=== PATIENT | male | born 1985 | race Two or more races ===

== ENCOUNTER 2021-12-23 16:42 | Emergency (ER) | payer MEDICAID ==
[~2021-12-23] VITALS: Ht 177.8 cm; Wt 77.0 kg
[2021-12-23] MEDS ORDERED: DICYCLOMINE 10 MG/5 ML ORAL SYR PO STA (16:52)
[2021-12-23] MEDS ORDERED: METOCLOPRAMIDE HCL 10MG/2ML VIAL IV STA (16:52)
[2021-12-23] MEDS ORDERED: VISCOUS LIDOCAINE 2% 15 ML UDC MM ONE (17:00)
[2021-12-23] MEDS ORDERED: MAGNESIUM/ALUMINUM HYDROXIDE/SIMETHICONE 30ML UDC PO ONE (17:00)
[2021-12-23] MEDS ORDERED: SODIUM CHLORIDE 0.9% 1,000 ML IV ONE (17:00)
[2021-12-23 17:37] LABS: CHLORIDE 108 mEq/L (98-107)
[2021-12-23 17:39] LABS: HEMOGLOBIN. 14.9 g/dL (14.0-18.0); MEAN CORPUSCULAR HEMOGLOBIN 26.9 pg (28.0-32.0); MEAN CORPUSCULAR VOLUME 79.3 fL (80.0-94.0); PLATELET 297 x1000/uL (130-400); RED BLOOD CELL COUNT 5.55 mill/uL (4.7-6.1); RED CELL DISTRIBUTION WIDTH 13.5 % (11.6-14.6)
[2021-12-23 18:01] LABS: PLATELET ESTIMATE NORMAL
[2021-12-23] MEDS ORDERED: PROPRANOLOL HCL 10MG TABLET PO ONE (18:45)
[2021-12-23] MEDS ORDERED: ALPRAZOLAM 0.25 MG TABLET PO ONE (18:45)
[2021-12-23 19:21] LABS: CLARITY URINE CLEAR (CLEAR); COLOR URINE DARK YELLOW (YELLOW); KETONES URINE TRACE (NEGATIVE); LEUKOCYTE ESTERASE URINE NEGATIVE (NEGATIVE); NITRITE URINE NEGATIVE (NEGATIVE); OCCULT BLOOD URINE NEGATIVE (NEGATIVE); PROTEIN URINE NEGATIVE (NEGATIVE); SPECIFIC GRAVITY URINE 1.027 (1.005-1.030); UROBILINOGEN URINE 0.2 E.U./dL (0.2-1.0)
[2021-12-23 19:36] VITALS: BP 131/92
[2021-12-23] MEDS ORDERED: KETOROLAC 15MG/ML VIAL IV NR (19:45)
[2021-12-23] MEDS ORDERED: IBUP-2029 MT (19:56)
[2021-12-23] MEDS ORDERED: ONDA4TAB5 MT (19:56)
[2021-12-23] MEDS ORDERED: DICY10CA88 MT (19:56)
== END 2021-12-23 20:43 | disposition home or self-care (01) ==
LOC: ER 16:42
DX: K80.20 Calculus of gallbladder without cholecystitis without obstruction (principal); D72.829 Elevated white blood cell count, unspecified; R03.0 Elevated blood-pressure reading, without diagnosis of hypertension; F41.9 Anxiety disorder, unspecified; K58.9 Irritable bowel syndrome, unspecified; G62.9 Polyneuropathy, unspecified; F12.10 Cannabis abuse, uncomplicated
CPT/HCPCS: 36415; 76705; 80053; 81003; 83690; 85025; 96374; 99284; J1885; J2765; J7030